=== PATIENT | male | born 1935 | race Caucasian/White ===

== ENCOUNTER 2019-05-24 10:04 | Inpatient (IN) ==
[2019-05-24] MEDS ORDERED: DESYREL PO PRN (10:24)
[2019-05-24] MEDS ORDERED: MORPHINE IV PRN (10:26)
[2019-05-24] MEDS ORDERED: ZOFRAN IV PRN (10:27)
[2019-05-24] MEDS ORDERED: SALINE LOCK IV FLUID XX ONE (10:29)
[2019-05-24] MEDS ORDERED: DIOVAN PO SCH (10:30)
[2019-05-24] MEDS ORDERED: LASIX IV SCH (10:30)
[2019-05-24] MEDS ORDERED: NORVASC PO SCH (10:30)
--- NOTE | 2019-05-24 11:42 | EKG Report ---
Test Performed on : 05/24/2019 11:34:40 AM Test Reason : Chest Pain Blood Pressure : / mmHG Vent. Rate : 040 BPM Atrial Rate : 041 BPM P-R Int : 000 ms QRS Dur : 092 ms QT Int : 498 ms P-R-T Axes : 000 006 023 degrees QTc Int : 405 ms Critical Test Result: Low HR Atrial fibrillation. with slow ventricular response. Anterior infarct (cited on or before 25-DEC-2011) Abnormal ECG When compared with ECG of 22-FEB-2012 15:55, Atrial fibrillation. has replaced Sinus rhythm. Confirmed by Deo Gross MD ([id number]) on 05/24/2019 1:30:29 PM
--- NOTE | 2019-05-24 11:54 | Diag Imaging Result Doc PS360 ---
CHEST-PORTABLE - 05/24/2019 INDICATION: Chest Pain COMPARISON: 01/18/2018 FINDINGS: There is cardiomegaly and pulmonary vascular congestion. No obvious infiltrates or edema. No large pleural effusion. IMPRESSION: Cardiomegaly and pulmonary vascular congestion. Electronically signed by Julian Art 05/24/2019 11:51 AM
[2019-05-24 13:37] LABS: BASO# 0.03 X1000 (0.0-0.2); BASO% 0.5 % (0.0-0.8); EOS# 0.14 X1000 (0.0-0.7); EOS% 2.5 % (0.0-10.0); HEMATOCRIT 38.4 % (42.0-52.0); HEMOGLOBIN 12.6 g/dL (14.0-18.0); LYMPH# 0.78 X1000 (1.2-3.4); LYMPH% 13.8 % (20.5-51.1); MCH 30.1 PG (27-31); MCHC 32.8 g/dL (33-37); MCV 91.9 FL (81-99); MONO# 0.44 X1000 (0.11-0.59); MONO% 7.8 % (1.7-9.3); MPV 10.4 FL (7.4-10.4); NEUT# 4.28 X1000 (1.4-6.5); NEUT% 75.4 % (42.2-75.2); PLT 144 X1000 (130-400); RBC 4.18 XMIL (4.7-6.1); RDW 14.4 % (11.5-14.5); WBC 5.67 X1000 (4.8-10.8)
[2019-05-24 14:06] LABS: AGAP 15; ALB/GLOB RATIO 1.4; ALBUMIN 4.3 g/dL (3.5-5.0); ALKALINE PHOSPHATASE 91 U/L (32-122); BUN 18 mg/dL (8-22); CALCIUM 8.9 mg/dL (8.8-10.2); CHLORIDE 102 mmol/L (98-107); COSMO 284; CREATININE 0.9 mg/dL (0.7-1.2); ESTIMATED GFR > 60; GLUCOSE 114 mg/dL (70-104); GOT 51 U/L (10-34); GPT 11 U/L (10-44); MAGNESIUM 2.3 mg/dL (1.5-2.7); POTASSIUM 4.5 mmol/L (3.5-5.1); SODIUM 141 mmol/L (136-145); TCO2 24 mmol/L (25-35); TOTAL BILIRUBIN 0.76 mg/dL (0.20-1.00); TOTAL PROTEIN 7.4 g/dL (6.3-8.3)
[2019-05-24 14:08] LABS: ALLEN TEST YES; BE 2.1 mmoll (-3.0-3.0); BLOOD TYPE ARTERIAL; HCO3-(ACT) 26.5 mmoll (20.0-26.0); METHB 0.7 % (0.0-1.5); O2(CT) 16.8 mL/dL (15.0-23.0); O2HB 94.9 % (95.0-99.0); PCO2(98.6) 35 mmHg (35-45); PO2(98.6) 71 mmHg (60-100); SAMPLE BLOOD; SAO2 97.6 % (95.0-100.0); THB 12.6 g/dL (11.5-17.4); pH(98.6) 7.47 (7.35-7.45)
--- NOTE | 2019-05-24 14:18 | CARDIOLOGY CONSULTATION ---
DATE: 05/24/2019 HISTORY OF PRESENT ILLNESS: Cardiology was consulted. The patient is an 83-year-old gentleman with history of atrial fibrillation, hypertension, sleep apnea, morbid obesity, edema, comes with complaints of having noticed elevated blood pressure and a low heart rate and increasing pedal edema. He this morning had a blood pressure of 170-180 at home and is noted to have low heart rate. He went to see Dr. Kuo in his office, heart rate was in the 30s and 40s with chronic atrial fibrillation. Patient was advised to come to the hospital and be admitted. As far as his other symptoms are concerned, he has noticed increasing pedal edema which has been going on for some time, recent worsening of his pedal edema and recent medication changes were made with increasing Norvasc which he says also increased his pedal edema. For the last 6 months, he has been diagnosed to have sleep apnea, uses a CPAP machine as well. As far as his heart rates are concerned, he has had chronic atrial fibrillation for which he is taking anticoagulation therapy and his heart rate always run in the 40s. He is not on any medications to changes or decrease the heart rate or control the atrial fibrillation. He is on anticoagulation therapy for stroke prophylaxis. Does not complain of any bleeding issues. REVIEW OF SYSTEM: A 14-point review of systems was done. Gastrointestinal System: There is no history of nausea, vomiting, diarrhea. Cardiovascular System: Patient complains of right inframammary chest pain, nonexertional. This is been intermittent. In addition, as far as shortness of breath is concerned, over the last 6 months, he has noticed worsening shortness of breath with exertion. There is no orthopnea or paroxysmal nocturnal dyspnea. PAST MEDICAL HISTORY: 1. Chronic atrial fibrillation. 2. Bradycardia. 3. Hypertension. 4. Hyperlipidemia. 5. Edema. 6. Morbid obesity. 7. Sleep apnea. MEDICATIONS AT HOME: Xarelto 20 mg a day, amlodipine increased recently from 2.5 to 5 mg a day, he is on a Lasix 20 in addition to clonidine and Micardis. However in the hospital, changes to medications as below. SOCIAL HISTORY: He does not smoke. There is no history of alcohol abuse. PHYSICAL EXAMINATION: Vital Signs: Blood pressure was 215/89 when he came to the emergency room. Heart rate of 42. Cardiovascular: First and second heart sounds were heard. There was a faint systolic murmur. Respiratory: Distant breath sounds. Abdomen: Obese, soft, nontender. There was no guarding or rigidity. Bowel sounds were heard. Central nervous system: Alert and oriented, was moving all 4 extremities. Extremities: Examination of his extremities revealed pitting pedal edema bilaterally, worse on the right compared to the left. DIAGNOSTIC DATA: Electrocardiogram revealed atrial fibrillation with a rate of 40 beats per minute. ASSESSMENT AND PLAN: Mr. Clayton Zepeda is an 83-year-old gentleman who has chronic atrial fibrillation, hypertension, morbid obesity, sleep apnea, has been having increasing episodes of shortness of breath over the last 6 months with atypical chest pain today. He has also had accelerated hypertension. He states that this happened because of recent changes of medication. However, he also has noticed a low heart rate which has been chronic and he saw Dr. Kuo, subsequently was admitted to the hospital. RECOMMENDATIONS: 1. His last echocardiogram was in 2018 which revealed preserved left ventricular systolic function with a PA systolic pressure of 60. We will get an echocardiogram to reassess cardiac and valvular function in addition to his pulmonary pressures. 2. He has pulmonary arterial hypertension. This is probably secondary to morbid obesity, sleep apnea. However, given his worsening shortness of breath and some atypical chest pain, to make sure there is no coronary artery disease (his last stress test was in 2018 which was unremarkable), we will get a right and left heart catheterization. We will measure pressures on his right side and make sure there is no obstructive coronary artery disease as well. Risks, benefits and alternatives were explained. Patient will be set up for left heart catheterization on Wednesday. 3. He has chronic atrial fibrillation. Heart rates have been in the 40s. He is not on any beta blockers or rate control medications. He is on anticoagulation therapy with Xarelto. Given the planned left heart catheterization, we will hold the Xarelto and put him on Lovenox. 4. Hypertension. He has had hypertension with worsening pedal edema. The pedal edema again could be secondary to diastolic heart failure in addition to sleep apnea, COPD. However, have noticed that he is also on Norvasc. Given this, we will discontinue the Norvasc which can cause the pedal edema as well. He has been started on Lasix. We will change the Lasix to 40 mg twice daily, and also for his hypertension, he has been started on valsartan 160 mg. I will put him on hydralazine 50 mg 3 times a day. In the past, he was on hydralazine. 5. We will also check his thyroid profile, TSH. So far, we do not have all the labs. TSH is normal. Hemoglobin and hematocrit is stable. Cardiac enzymes, proBNP and CMP is pending. He has history of hyperlipidemia. We will also check a fasting lipid profile in the morning. Thank you for the consult. We will follow hospital course. cc: MD Brett Glover MD
--- NOTE | 2019-05-24 14:33 | HISTORY AND PHYSICAL ---
CHIEF COMPLAINT: Chest pain and shortness of breath. HISTORY OF PRESENT ILLNESS: This is an 83-year-old gentleman who came into the office today with 1-day history of right-sided chest pain associated with shortness of breath. He also reports elevated blood pressure all the time. [facility] at which time several medication changes were made because of uncontrolled hypertension. Since then, his condition was stable, but yesterday he started having right-sided chest pain and was accompanied with shortness of breath. He denies having any fever or any other complaints. PAST MEDICAL HISTORY: 1. Chronic atrial fibrillation. 2. Hypertension. 3. Dyslipidemia. 4. Coronary artery disease with minimal lesion on cardiac catheterization done in the early . 5. Carotid atherosclerosis. 6. Osteoarthritis. 7. Impaired fasting glucose. 8. Anxiety disorder. 9. Insomnia. PAST SURGICAL HISTORY: Hernia repair. SOCIAL HISTORY: The patient does not smoke any tobacco products nor does he drink alcohol. He lives here in [place] with his . FAMILY HISTORY: Noncontributory. ALLERGIES: Patient reports to be allergic to codeine. HOME MEDICATIONS: 1. Amlodipine 5 mg orally once daily. 2. Citalopram 20 mg orally once daily. 3. Clonidine 0.1 mg orally twice daily. 4. Furosemide 20 mg orally once daily in the morning. 5. Gabapentin 300 mg orally once daily at bedtime. 6. Trazodone 50 mg orally once daily at bedtime as needed for insomnia. 7. Valsartan 80 mg orally once daily. 8. Xarelto 20 mg orally once daily. 9. Hydrocodone/acetaminophen 7.5 mg/325 mg orally up to 3 times a day as needed for chronic osteoarthritis pain. REVIEW OF SYSTEMS: A full 14-point review of systems was obtained that was pretty much the same as already has been explained in the HPI. PHYSICAL EXAMINATION: VITAL SIGNS: Temperature 98.3 degrees, pulse 42 per minute, respiratory rate 19 per minute, blood pressure 215 x 89, pulse oximetry 95% on room air. GENERAL: Patient is alert and oriented x3. He does not appear to be in any acute distress. HEENT: Within normal limits. NECK: Supple without any thyromegaly. LYMPHATICS: No lymphadenopathy noted in the neck region. CHEST: Chest wall is nontender. CARDIOVASCULAR: First and second heart sounds are audible with a very slow irregularly irregular rhythm noted. RESPIRATORY: Bilateral lung air entry is moderately decreased with no rales or rhonchi present on auscultation. GASTROINTESTINAL: Patient is obese. Abdomen is soft and nondistended. It is nontender on palpation and normal bowel sounds are present. NEUROLOGIC: No focal deficits are present. MUSCULOSKELETAL: Range of motion in most of the joints somewhat limited secondary to osteoarthritis. GENITOURINARY: Deferred. PSYCHIATRIC: Patient appears to be somewhat anxious. INTEGUMENTARY: Skin is warm and dry without any rash. DIAGNOSTIC DATA: ECG done today showed atrial fibrillation with a slow ventricular response of 40 beats per minute. An EKG done earlier today showed the same with the ventricular response of 38 beats per minute. Chest x-ray showed cardiomegaly with pulmonary vascular congestion. IMPRESSION: 1. Atypical chest pain. 2. Dyspnea. 3. Acute diastolic congestive heart failure. 4. Chronic atrial fibrillation with slow ventricular response. 5. Uncontrolled hypertension. 6. History of mild coronary artery disease. 7. Dyslipidemia. PLAN: The patient will be admitted to the hospital with telemetry and I will initiate him on furosemide 40 mg IV once daily, the dose of which could be increased later if needed. He will be started on valsartan 160 mg a day, along with amlodipine 5 mg a day and I am going to discontinue clonidine since that could be responsible for his slow heart rate. I am going to obtain labs including CBC,, CMP, TSH, ABG, along with troponin levels today. I am also going to obtain cardiology consultation for further evaluation and go ahead and order an echocardiogram as well. Further recommendations will be as per hospital course. cc: Brett Kuo MD MTDD
[2019-05-24] MEDS ORDERED: APRESOLINE PO ONE (15:13)
--- NOTE | 2019-05-24 16:04 | ECHO REPORT ---
ORDER DATE: 05/24/2019 INTERPRETING PHYSICIAN: Eddie Chowdary MD. CLINICAL INDICATIONS: CHF, atrial fibrillation. M-MODE MEASUREMENTS: Left ventricle end diastole: 5.2 cm. Left ventricle end systole: 3.5 cm. Posterior wall: 1.2 cm. Interventricular septum: 1.4 cm. Left atrium: 6.4 cm. Aortic diameter: 3.2 cm. SUMMARY OF 2-DIMENSIONAL IMAGIN. The left ventricular function appears to be at the lower limits of normal, ejection fraction estimated at 55%. 2. The left atrium is markedly dilated. 3. The right ventricle appears to be mildly enlarged. 4. The patient is bradycardic with atrial fibrillation. 5. The aortic valve has 3 cusps, they open normally. Color flow mapping unremarkable. 6. The pulmonic valve looks normal. Color flow mapping unremarkable. 7. The mitral valve shows a moderate degree of regurgitation. There is no significant calcification of annulus. 8. The tricuspid valve shows 2 to 3+ degree of tricuspid regurgitation with pulmonary pressure estimated at 83-88 mmHg. 9. The right-sided chambers are moderately enlarged. 10.There is no pericardial effusion, no mass, and no thrombus. 11.The patient is in atrial fibrillation. 12.The pulse wave Doppler of mitral inflow shows a single-filling wave. 13.The tissue Doppler of septal and lateral mitral annulus also shows only E prime velocity with E prime average at 8 cm. Clinical correlation is recommended. cc: MD Brett Bah MD
[2019-05-24] MEDS: NEURONTIN PO SCH (20:20)
[2019-05-24] MEDS: LASIX IV SCH (20:21)
[2019-05-24] MEDS ORDERED: CATAPRES PO SCH (21:00)
[2019-05-24] MEDS ORDERED: APRESOLINE PO SCH (21:00)
[2019-05-24] MEDS: LOVENOX SUBQ SCH (22:39)
[2019-05-25 08:24] LABS: AGAP 12; BUN 17 mg/dL (8-22); CALCIUM 9.3 mg/dL (8.8-10.2); CHLORIDE 101 mmol/L (98-107); COSMO 281; CREATININE 0.9 mg/dL (0.7-1.2); ESTIMATED GFR > 60; GLUCOSE 98 mg/dL (70-104); POTASSIUM 3.9 mmol/L (3.5-5.1); SODIUM 140 mmol/L (136-145); TCO2 27 mmol/L (25-35)
[2019-05-25] MEDS: DIOVAN PO SCH (08:55)
[2019-05-25] MEDS: CELEXA PO SCH (08:55)
[2019-05-25] MEDS: LASIX IV SCH ×2 (08:56→21:55)
[2019-05-25] MEDS ORDERED: LOVENOX SUBQ SCH (09:00)
[2019-05-25] MEDS ORDERED: XARELTO PO SCH (09:00)
[2019-05-25] MEDS: LOVENOX SUBQ SCH ×2 (09:07→21:54)
[2019-05-25] MEDS: APRESOLINE PO SCH ×3 (09:08→21:54)
--- NOTE | 2019-05-25 13:40 | PROGRESS NOTE ---
DATE: 05/25/2019 SUBJECTIVE: Patient denies having any acute complaints this morning and feels much better as compared to yesterday. OBJECTIVE: Vital Signs: Temperature 97.9 degrees, pulse 41 per minute, respiratory rate 14 per minute, blood pressure 205 x 65, pulse oximetry 100% on 2 L of oxygen via nasal cannula. General: Patient is alert and oriented x3. He does not appear to be in any acute distress. Cardiovascular System: First and second heart sounds are audible with significant bradycardia present. Respiratory System: Bilateral lung air entry is moderately decreased with no rales or rhonchi present on auscultation. Abdomen: Soft and nondistended. Normal bowel sounds are present. Musculoskeletal System: No deformities are present. There is 1+ bilateral pedal edema. DIAGNOSTIC DATA: Basic metabolic panel was nondiagnostic and lipid panel done this morning showed LDL levels of 99 and total cholesterol of 140 with HDL of 39. ProBNP was found to be 1261 yesterday afternoon. Troponin levels were also negative yesterday afternoon. IMPRESSION: 1. Acute diastolic congestive heart failure in this 83-year-old gentleman who also has chronic atrial fibrillation with slow ventricular response and uncontrolled hypertension. 2. He also has history of mild coronary artery disease that was found in the distant past. 3. Dyslipidemia. PLAN: The patient's chest pain has resolved and he is no longer having any dyspnea. He has responded well to furosemide IV that will be continued. He does have very slow ventricular response, which could be again secondary to clonidine that was given to him because of uncontrolled hypertension last night. I have discontinued that and increased his hydralazine to 100 mg orally 3 times a day. Would also increase valsartan to 320 mg orally once daily. Acute myocardial ischemic event has been ruled out with negative cardiac enzyme, but Cardiology is evaluating him for possible left heart catheterization. I had a discussion with the patient and he has 2nd thoughts about that procedure. He will discuss that with Cardiology. We will continue with the current treatment for now and monitor his condition. Further recommendations will be as per hospital course. cc: Brett Kuo MD
[2019-05-25] MEDS: NEURONTIN PO SCH (21:55)
[2019-05-26 08:01] LABS: HEMOGLOBIN 12.6 g/dL (14.0-18.0); MCH 29.7 PG (27-31); MCHC 32.3 g/dL (33-37); MPV 9.9 FL (7.4-10.4); RBC 4.24 XMIL (4.7-6.1); RDW 14.5 % (11.5-14.5); WBC 5.78 X1000 (4.8-10.8)
[2019-05-26 08:04] LABS: INR 1.12; PROTIME 14.6 Seconds (11.0-16.0)
[2019-05-26] MEDS: DIOVAN PO SCH (08:34)
[2019-05-26] MEDS: CELEXA PO SCH (08:34)
[2019-05-26] MEDS: APRESOLINE PO SCH ×3 (08:34→21:33)
[2019-05-26 08:36] LABS: AGAP 14; BUN 17 mg/dL (8-22); CALCIUM 9.4 mg/dL (8.8-10.2); CHLORIDE 103 mmol/L (98-107); COSMO 287; CREATININE 0.9 mg/dL (0.7-1.2); ESTIMATED GFR > 60; GLUCOSE 102 mg/dL (70-104); MAGNESIUM 2.2 mg/dL (1.5-2.7); POTASSIUM 3.7 mmol/L (3.5-5.1); SODIUM 143 mmol/L (136-145); TCO2 26 mmol/L (25-35)
[2019-05-26] MEDS: LASIX IV SCH ×2 (10:48→21:33)
[2019-05-26] MEDS: KLOR-CON PO SCH (12:58)
--- NOTE | 2019-05-26 14:22 | PROGRESS NOTE ---
DATE: 05/26/2019 SUBJECTIVE: Patient denies having any acute complaints and feels better today. OBJECTIVE: Vital Signs: Temperature 97.9 degrees, pulse 60 per minute, respiratory rate 18 per minute, blood pressure 167/45, pulse oximetry 94% on room air. General: The patient is alert and oriented x3. He does not appear to be in any acute distress. Cardiovascular System: First and second heart sounds are audible without any murmurs or gallops. Irregularly irregular heart rate is present. Respiratory System: Bilateral lung air entry is slightly decreased but there are no rales or rhonchi present on auscultation. Gastrointestinal System: Abdomen is soft and nondistended. Normal bowel sounds are present. DIAGNOSTIC DATA: CBC from this morning shows hemoglobin of 12.6 and hematocrit 39.0. Rest of the CBC is within normal limits. In comparison, his hemoglobin and hematocrit were pretty much the same 2 days ago on 05/24/2019 with hemoglobin of 12.6 and hematocrit 38.4. Basic metabolic panel obtained this morning is within normal limits, although there is slight decline of potassium from 4.5 at admission to 3.7 today. IMPRESSION: 1. Acute diastolic congestive heart failure with chronic atrial fibrillation and uncontrolled hypertension. 2. History of mild coronary artery disease that has been treated medically and also has history of dyslipidemia. PLAN: The patient's symptoms have resolved and he does not have any dyspnea anymore. He has responded well to IV furosemide that will be continued. His blood pressure is still somewhat elevated for which we have increased the dosages of valsartan and hydralazine. We are going to continue to monitor him for another day here at the hospital. I personally believe he can be discharged home tomorrow. Cardiology wants him to be kept until tomorrow for monitoring his blood pressure. They initially wanted to have a left heart catheterization, but patient declined to do that testing and wanted to wait for at least a month to see if medical management will improve his condition. Otherwise, there are no other recommendations and the patient is happy with his management at this time. cc: Brett Kuo MD
[2019-05-26] MEDS: XARELTO PO SCH (16:54)
[2019-05-26] MEDS: NEURONTIN PO SCH (21:33)
--- NOTE | 2019-05-27 05:49 | Diag Imaging Result Doc PS360 ---
EXAM: CHEST-PORTABLE HISTORY: CHF TECHNIQUE: Single view COMPARISON: 05/24/2019 FINDINGS: The lungs are well expanded. The heart remains enlarged. There is mild pulmonary edema. No consolidation. Likely small left pleural effusion. IMPRESSION: No interval improvement Electronically signed by Andrés Armenta 05/27/2019 5:47 AM
[2019-05-27 07:59] LABS: BASO# 0.03 X1000 (0.0-0.2); BASO% 0.6 % (0.0-0.8); EOS# 0.22 X1000 (0.0-0.7); EOS% 4.2 % (0.0-10.0); HEMATOCRIT 38.2 % (42.0-52.0); HEMOGLOBIN 12.1 g/dL (14.0-18.0); MCH 29.2 PG (27-31); MCHC 31.7 g/dL (33-37); MCV 92.3 FL (81-99); MONO# 0.56 X1000 (0.11-0.59); MONO% 10.6 % (1.7-9.3); MPV 9.9 FL (7.4-10.4); NEUT# 3.46 X1000 (1.4-6.5); NEUT% 65.6 % (42.2-75.2); PLT 168 X1000 (130-400); RBC 4.14 XMIL (4.7-6.1); RDW 14.4 % (11.5-14.5); WBC 5.27 X1000 (4.8-10.8)
[2019-05-27] MEDS: DIOVAN PO SCH (08:01)
[2019-05-27] MEDS: CELEXA PO SCH (08:01)
[2019-05-27] MEDS: KLOR-CON PO SCH (08:01)
[2019-05-27] MEDS: LASIX PO SCH ×2 (08:01→20:36)
[2019-05-27] MEDS: APRESOLINE PO SCH ×3 (08:01→20:36)
[2019-05-27 08:08] LABS: AGAP 10; BUN 16 mg/dL (8-22); CALCIUM 8.9 mg/dL (8.8-10.2); CHLORIDE 101 mmol/L (98-107); COSMO 279; ESTIMATED GFR > 60; GLUCOSE 104 mg/dL (70-104); POTASSIUM 3.7 mmol/L (3.5-5.1); SODIUM 139 mmol/L (136-145); TCO2 28 mmol/L (25-35)
[2019-05-27] MEDS ORDERED: LASIX IV ONE (09:28)
[2019-05-27] MEDS ORDERED: NORVASC PO SCH (09:30)
--- NOTE | 2019-05-27 10:03 | PROGRESS NOTE ---
DATE: 05/27/2019 SUBJECTIVE: An 83-year-old white gentleman admitted with right-sided chest pain with shortness of breath. The patient was also bradycardic. Patient admitted to the hospital with diagnosis of atypical chest pain, dyspnea, acute diastolic heart failure. The patient does have chronic atrial fibrillation with slow ventricular response. The patient is doing fair. He got to go home. His blood pressure is staying high. Chest x-ray done today did reveal pulmonary congestion, no typical chest pain. No nausea or vomiting. Denied any dysuria or hematuria. Admission history and physical noted. PAST MEDICAL HISTORY: Significant for hyperlipidemia, uncontrolled hypertension, atrial fibrillation and diastolic heart failure. OBJECTIVE: Vital Signs: Blood pressure 184/52, pulse 48, respiration rate 14, temperature 99.2 degrees. Skin: Senile turgor. Neck: Supple. No JVD, thyromegaly or lymphadenopathy. Chest: Bibasilar crepitations. Heart: S1 and S2 heard. Abdomen: Soft, globular. Bowel sounds present. [employer] P[employer]ER: Alert, awake. Able to move all 4 limbs. LABORATORY DATA: Done today reveals hemoglobin 12.1, hematocrit 38.2. WBC count 5.27, platelets 168. Electrolyte result reviewed. CONSIDERATION: 1. Uncontrolled hypertension. Chest x-ray still showing no interval improvement. 2. The patient does have atrial fibrillation, diastolic heart failure, hyperlipidemia. I am going to give him intravenous Lasix. Add Norvasc. Continue rest of the treatment. 3. Monitor patient today. If clinical condition permits, we will plan discharging patient home tomorrow. cc: MD Brett Berry MD
[2019-05-27] MEDS: NORVASC PO SCH (10:27)
[2019-05-27] MEDS: XARELTO PO SCH (16:28)
[2019-05-27] MEDS: NEURONTIN PO SCH (23:59)
[2019-05-28 07:39] LABS: BASO# 0.05 X1000 (0.0-0.2); BASO% 0.8 % (0.0-0.8); EOS# 0.28 X1000 (0.0-0.7); EOS% 4.4 % (0.0-10.0); HEMATOCRIT 40.4 % (42.0-52.0); IMM GRAN# 0.02 X1000 (0.0-0.04); IMM GRAN% 0.3 % (0.0-0.5); LYMPH# 1.32 X1000 (1.2-3.4); LYMPH% 20.9 % (20.5-51.1); MCH 29.4 PG (27-31); MCHC 32.2 g/dL (33-37); MCV 91.4 FL (81-99); MONO# 0.59 X1000 (0.11-0.59); MONO% 9.3 % (1.7-9.3); MPV 9.9 FL (7.4-10.4); NEUT# 4.06 X1000 (1.4-6.5); NEUT% 64.3 % (42.2-75.2); PLT 183 X1000 (130-400); RBC 4.42 XMIL (4.7-6.1); RDW 14.5 % (11.5-14.5); WBC 6.32 X1000 (4.8-10.8)
[2019-05-28 07:45] LABS: AGAP 12; ALB/GLOB RATIO 0.9; ALBUMIN 3.7 g/dL (3.5-5.0); ALKALINE PHOSPHATASE 82 U/L (32-122); BUN 13 mg/dL (8-22); CALCIUM 8.4 mg/dL (8.8-10.2); CHLORIDE 102 mmol/L (98-107); COSMO 278; CREATININE 0.9 mg/dL (0.7-1.2); ESTIMATED GFR > 60; GLUCOSE 113 mg/dL (70-104); GOT 62 U/L (10-34); GPT 17 U/L (10-44); MAGNESIUM 2.4 mg/dL (1.5-2.7); POTASSIUM 3.8 mmol/L (3.5-5.1); SODIUM 139 mmol/L (136-145); TCO2 25 mmol/L (25-35); TOTAL BILIRUBIN 0.75 mg/dL (0.20-1.00); TOTAL PROTEIN 7.6 g/dL (6.3-8.3)
[2019-05-28] MEDS ORDERED: CATAPRES PO ONE (07:55)
[2019-05-28] MEDS ORDERED: TYLENOL PO PRN (07:56)
[2019-05-28] MEDS: CELEXA PO SCH (08:23)
[2019-05-28] MEDS: DIOVAN PO SCH (08:23)
[2019-05-28] MEDS: NORVASC PO SCH (08:23)
[2019-05-28] MEDS: APRESOLINE PO SCH ×3 (08:23→21:00)
[2019-05-28] MEDS: KLOR-CON PO SCH (08:23)
[2019-05-28] MEDS: LASIX PO SCH ×2 (08:24→21:00)
[2019-05-28] MEDS ORDERED: CATAPRES PO PRN (09:40)
[2019-05-28] MEDS ORDERED: ALDACTONE PO SCH (09:45)
--- NOTE | 2019-05-28 10:01 | PROGRESS NOTE ---
DATE: 05/28/2019 SUBJECTIVE: Mr. Ferreira is doing fair, complaining of neuropathic pain in both the feet last night. No high-grade fever or chills. No chest pain or unusual shortness of breath. Denied any nausea or vomiting. The patient's blood pressure was 218/55. I gave him some clonidine, and will monitor blood pressure closely. I added Norvasc to his blood pressure regimen yesterday. PAST MEDICAL HISTORY: Noted. MEDICATIONS: Noted. OBJECTIVE: Vital Signs: Reviewed. Neck: Supple. No JVD. Lungs: Bilateral good air entry present. Few basal crepitations. CVS: S1 and S2 heard. Abdomen: Soft, globular. Bowel sounds present. Extremities: Swelling in the leg is minimal. No acute DVT. LABORATORY DATA: Today, hemoglobin 13, hematocrit 40.4, WBC count 6.32. Electrolytes were fairly benign. PLAN: Will continue current treatment. I am going to hold discharge, monitor the patient closely. I am going to add a small dose of Aldactone. Overall plan discussed with the patient. ASSESSMENT: 1. Emergent hypertension. 2. Chest wall pain. 3. History suggestive of mild congestive heart failure. 4. Atrial fibrillation. 5. Diastolic heart failure. 6. Hyperlipidemia. Considering emergent hypertension, I am going to hold discharge today. cc: MD Brett Berry MD
[2019-05-28] MEDS: XARELTO PO SCH (16:28)
[2019-05-28] MEDS: NEURONTIN PO SCH (21:00)
[2019-05-29] MEDS: NORVASC PO SCH ×2 (07:55→08:23)
[2019-05-29 07:58] VITALS: BP 197/54
[2019-05-29] MEDS: APRESOLINE PO SCH (08:02)
[2019-05-29] MEDS: DIOVAN PO SCH (08:02)
[2019-05-29] MEDS: LASIX PO SCH (08:02)
[2019-05-29] MEDS: CELEXA PO SCH (08:02)
[2019-05-29] MEDS: KLOR-CON PO SCH (08:02)
[2019-05-29] MEDS ORDERED: ALDACTAZIDE 25/25 PO SCH (09:00)
--- NOTE | 2019-05-29 09:31 | DISCHARGE SUMMARY ---
ADMISSION DATE: 05/24/2019 DISCHARGE DATE: 05/29/2019 DISCHARGE DIAGNOSES: 1. Atypical chest pain with dyspnea secondary to acute diastolic congestive heart failure. 2. Uncontrolled hypertension. 3. Chronic atrial fibrillation with slow ventricular response. 4. History of mild coronary artery disease and dyslipidemia. HOSPITAL COURSE: Mr. Ferreira is an 83-year-old gentleman who was admitted to the hospital after he presented to the office with a 1-day history of right-sided chest pain associated with shortness of breath. He was noted to have pulmonary vascular congestion on chest x-ray and was treated with IV furosemide with which his condition improved. All of his symptoms resolved within 24 hours once IV furosemide was administered. He was also noted to have severe bradycardia that was likely secondary to clonidine, which was discontinued. He has been restarted on amlodipine 2.5 mg a day, along with furosemide 40 mg orally twice daily and spironolactone/hydrochlorothiazide 25 mg/25 mg orally once daily. Furthermore, I have also increased his valsartan to 320 mg orally once daily. His blood pressure is still uncontrolled but overall, he feels good. It has been decided that we are going to monitor his blood pressure as outpatient and adjust his medications. He had negative cardiac enzymes and acute myocardial ischemic event was ruled out. Cardiology was consulted who were actively involved in the care of this patient during this hospital admission. They did discuss with the patient about the possibility of having left heart catheterization during this hospital admission but patient declined and he stated that he would rather wait and see if his condition improves without having the procedure done. He will think about a left heart catheterization to be done in a month if he has any significant issues. Since his condition has improved, we are going to discharge him home today. DISCHARGE MEDICATIONS: 1. Furosemide 40 mg orally twice daily. 2. Potassium chloride 20 mEq orally once daily. 3. Spironolactone/hydrochlorothiazide 25 mg/25 mg orally once daily in the morning. 4. Hydralazine 100 mg orally 3 times a day. 5. Valsartan 320 mg orally once daily. 6. Amlodipine 2.5 mg orally once daily. 7. Citalopram 20 mg orally once daily. 8. Gabapentin 300 mg orally once daily at bedtime. 9. Xarelto 20 mg orally once daily. FOLLOWUP: He will follow up with me at the office in approximately 1 week and follow up with [facility] in approximately 2 weeks. CONDITION: Stable. DISPOSITION: Home. cc: Brett Kuo MD
== END 2019-05-29 09:23 | disposition home or self-care (01) | DRG 308 ==
LOC: DIRADM 10:04 → EDIPHOLD 11:00 → 3N 18:07
PROVIDERS: ADMIT Internal Medicine; ATTEND Internal Medicine